=== PATIENT | female | born 1945 | race Caucasian/White ===

== ENCOUNTER → 2017-06-23 | Outpatient (CLI) | payer MEDICARE ==
--- NOTE | 2017-06-23 12:56 | REP ---
Left knee MRI: There are no comparison studies. The study is performed with proton density and T2 data sets in sagittal, axial and coronal projections. There is a large joint effusion and a large Curtis's cyst. There are suprapatellar plica outlined by the joint effusion. There is mild thinning of the articular cartilage. There are small osteophytes at the medial lateral joint margins compatible with mild tricompartment osteoarthritis. There is diffuse increased signal throughout the posterior horn and body of the medial meniscus compatible with extensive degeneration and complex tear. There is T2 signal in the soft tissues along the lateral and posterior margins of the medial collateral ligament extending into the adjacent fascial planes compatible with medial collateral ligament sprain. The lateral meniscus is unremarkable. The anterior posterior cruciate ligaments are unremarkable. The lateral collateral ligament is unremarkable. The quadriceps and patellar tendons are unremarkable. There is no marrow edema. Impression: Large complex tear and degeneration of the body and posterior horn of the medial meniscus. Probable medial collateral ligament sprain. Large joint effusion and large Curtis's cyst. Suprapatellar plica. Tricompartment osteoarthritis. No marrow edema. Signed by Adin Jackson MD 06/23/2017 12:47 P
== END ==
LOC: M RAD 10:11
PROVIDERS: ATTEND Orthopaedic Surgery
DX: S83.241A Other tear of medial meniscus, current injury, right knee, initial encounter (principal); M71.22 Synovial cyst of popliteal space [Baker], left knee; M67.52 Plica syndrome, left knee; M17.9 Osteoarthritis of knee, unspecified; X58.XXXA Exposure to other specified factors, initial encounter; Y92.89 Other specified places as the place of occurrence of the external cause; Y93.89 Activity, other specified; Y99.8 Other external cause status